=== PATIENT | female | born 1945 | race Caucasian/White ===

== ENCOUNTER → 2025-03-04 13:09 | Outpatient (REF) | payer MEDICARE, BC, SELFPAY | LOC: HWLAB 13:09 | PROVIDERS: ATTENDING PHYSICIAN Internal Medicine Gastroenterology; FAMILY PHYSICIAN Internal Medicine | DX: R19.7 Diarrhea, unspecified (principal) | CPT/HCPCS: 82653; 83993; 87045; 87046; 87328; 87329; 87427 ==